=== PATIENT | female | born 1995 | race Caucasian/White ===

== ENCOUNTER 2017-07-25 14:19 | Emergency (ER) | payer SELFPAY ==
[~2017-07-25] VITALS: Ht 166.4 cm; Wt 48.2 kg
[~2017-07-25 14:19] MED LIST: FLAG500T PO
[2017-07-25 14:26] VITALS: BP 114/66; PULSE 81; RESP 16; TEMP 97.5; O2SAT 100
[2017-07-25] MEDS ORDERED: SODIUM CHLOR 0.9% 1000 ML INJ 1,000 ML IV ONE (14:42)
[2017-07-25] MEDS ORDERED: SODIUM CHLORIDE 0.9% FLUSH 10 ML FLUSH IVF PRN (14:45)
[2017-07-25] MEDS ORDERED: ONDANSETRON HCL 4 MG/2 ML VIAL IVP ONE (14:45)
--- NOTE | 2017-07-25 14:47 | PD ---
HPI Chief Complaint: GI Complaint Time Seen by Provider: 14:35 Travel History International Travel<30 days: No Contact w/Intl Traveler<30days: No Traveled to known affect area: No History of Present Illness HPI The patient is a 22-year-old female who presents emergency department for nausea, vomiting, lower abdominal cramping. The patient is a whose last menstrual cycle was May 09, 2017, she thinks she may be . She denies any dysuria, frequency, urgency, vaginal discharge, or vaginal bleeding. The abdominal pain is located in the lower aspect, is described as cramping, and assisted with nausea and vomiting. She denies any diarrhea. She denies any fever, chills, or sweats. She recently returned home from [place] to the local area. She is sexually active. Symptoms are mild to moderate. PFSH Past Medical History Depression: Yes Diabetes: Yes (HYPOGLYCEMIA) Seizures: Yes ?: Unknown LMP: 05/09/17 : 1 Past Surgical History Appendectomy: Yes Social History Alcohol Use: No Tobacco Use: No Substance Use: No Allergies-Medications (Allergen,Severity, Reaction): Coded Allergies: No Known Allergies (Unverified Adverse Reaction, Unknown, 07/25/17) Reported Meds & Prescriptions Reported Meds & Active Scripts Active Reported Lamictal (Lamotrigine) 100 Mg Tab 100 Mg PO BID Review of Systems Except as stated in HPI: all other systems reviewed are Neg General / Constitutional: No: Fever Cardiovascular: No: Chest Pain or Discomfort Respiratory: No: Shortness of Breath Gastrointestinal: Positive: Nausea, Vomiting, No: Diarrhea, Abdominal Pain Genitourinary: Positive: Pelvic Pain, No: Dysuria, Discharge, Vaginal Bleeding Skin: No Rash Physical Exam Narrative GENERAL: Awake, alert, nontoxic-appearing 22-year-old female who appears her stated age and is in no acute respiratory distress. SKIN: Focused skin assessment warm/dry. HEAD: Atraumatic. Normocephalic. EYES: Pupils equal and round. Patient is wearing glasses. ENT: No nasal bleeding or discharge. Mucous membranes pink and moist. NECK: Trachea midline. No JVD. CARDIOVASCULAR: Regular rate and rhythm. No murmur appreciated. RESPIRATORY: No accessory muscle use. Clear to auscultation. Breath sounds equal bilaterally. GASTROINTESTINAL: Abdomen soft, non-tender, nondistended. No rebound tenderness , guarding, rigidity. Back: No CVA tenderness. MUSCULOSKELETAL: No obvious deformities. No clubbing. No cyanosis. No edema. NEUROLOGICAL: Awake and alert. No obvious cranial nerve deficits. Motor grossly within normal limits. Normal speech. PSYCHIATRIC: Appropriate mood and affect; insight and judgment normal. Data Data Last Documented VS Vital Signs Date Time Temp Pulse Resp B/P (MAP) Pulse Ox O2 Delivery O2 Flow Rate FiO2 07/25/17 16:21 78 16 104/58 (73) 98 Room Air 07/25/17 14:26 97.5 Orders Orders Complete Blood Count With Diff (07/25/17 14:42) Comprehensive Metabolic Panel (07/25/17 14:42) Urinalysis - C+S If Indicated (07/25/17 14:42) Sodium Chloride 0.9% Flush (Ns Flush) (07/25/17 14:45) Sodium Chlor 0.9% 1000 Ml Inj (Ns 1000 M (07/25/17 14:42) Ondansetron Inj (Zofran Inj) (07/25/17 14:45) Ed Urine Pregnancytest Poc (07/25/17 14:42) Lipase (07/25/17 14:42) Beta Hcg (Quant/Titer) (07/25/17 14:50) Us Pelvis (Ques Preg/Ectopic) (07/25/17 ) Potassium Chloride (Kcl) (07/25/17 16:00) Labs Laboratory Tests Test 07/25/17 14:40 07/25/17 14:50 Urine Collection Type VOIDED Urine Color YELLOW Urine Turbidity CLOUDY Urine pH 8.5 Urine Specific [place] 1.018 Urine Protein NEG mg/dL Urine Glucose (UA) NEG mg/dL Urine Ketones NEG mg/dL Urine Occult Blood NEG Urine Nitrite NEG Urine Bilirubin NEG Urine Leukocyte Esterase SMALL Urine WBC 0-2 /hpf Urine Squamous Epithelial Cells 0-5 /hpf Urine Amorphous Sediment MOD Microscopic Urinalysis Comment CULT NOT INDICATED White Blood Count 6.9 TH/MM3 Red Blood Count 4.54 MIL/MM3 Hemoglobin 13.5 GM/DL Hematocrit 39.6 % Mean Corpuscular Volume 87.2 FL Mean Corpuscular Hemoglobin 29.7 PG Mean Corpuscular Hemoglobin Concent 34.1 % Red Cell Distribution Width 11.6 % Platelet Count 177 TH/MM3 Mean Platelet Volume 10.4 FL Neutrophils (%) (Auto) 58.7 % Lymphocytes (%) (Auto) 31.4 % Monocytes (%) (Auto) 8.4 % Eosinophils (%) (Auto) 0.6 % Basophils (%) (Auto) 0.9 % Neutrophils # (Auto) 4.0 TH/MM3 Lymphocytes # (Auto) 2.2 TH/MM3 Monocytes # (Auto) 0.6 TH/MM3 Eosinophils # (Auto) 0.0 TH/MM3 Basophils # (Auto) 0.1 TH/MM3 CBC Comment DIFF FINAL Differential Comment Blood Urea Nitrogen 5 MG/DL Creatinine 0.61 MG/DL Random Glucose 79 MG/DL Total Protein 7.8 GM/DL Albumin 4.2 GM/DL Calcium Level 9.4 MG/DL Alkaline Phosphatase 75 U/L Aspartate Amino Transf (AST/SGOT) 15 U/L Alanine Aminotransferase (ALT/SGPT) 16 U/L Total Bilirubin 0.3 MG/DL Sodium Level 136 MEQ/L Potassium Level 3.2 MEQ/L Chloride Level 104 MEQ/L Carbon Dioxide Level 23.6 MEQ/L Anion Gap 8 MEQ/L Estimat Glomerular Filtration Rate 125 ML/MIN Lipase 155 U/L Human Chorionic Gonadotropin, Quant [id number] MIU/ML MDM Medical Decision Making Medical Screen Exam Complete: Yes Emergency Medical Condition: Yes Medical Record Reviewed: Yes Interpretation(s) Laboratory Tests Test 07/25/17 14:40 07/25/17 14:50 Urine Collection Type VOIDED Urine Color YELLOW Urine Turbidity CLOUDY Urine pH 8.5 Urine Specific [place] 1.018 Urine Protein NEG mg/dL Urine Glucose (UA) NEG mg/dL Urine Ketones NEG mg/dL Urine Occult Blood NEG Urine Nitrite NEG Urine Bilirubin NEG Urine Leukocyte Esterase SMALL Urine WBC 0-2 /hpf Urine Squamous Epithelial Cells 0-5 /hpf Urine Amorphous Sediment MOD Microscopic Urinalysis Comment CULT NOT INDICATED White Blood Count 6.9 TH/MM3 Red Blood Count 4.54 MIL/MM3 Hemoglobin 13.5 GM/DL Hematocrit 39.6 % Mean Corpuscular Volume 87.2 FL Mean Corpuscular Hemoglobin 29.7 PG Mean Corpuscular Hemoglobin Concent 34.1 % Red Cell Distribution Width 11.6 % Platelet Count 177 TH/MM3 Mean Platelet Volume 10.4 FL Neutrophils (%) (Auto) 58.7 % Lymphocytes (%) (Auto) 31.4 % Monocytes (%) (Auto) 8.4 % Eosinophils (%) (Auto) 0.6 % Basophils (%) (Auto) 0.9 % Neutrophils # (Auto) 4.0 TH/MM3 Lymphocytes # (Auto) 2.2 TH/MM3 Monocytes # (Auto) 0.6 TH/MM3 Eosinophils # (Auto) 0.0 TH/MM3 Basophils # (Auto) 0.1 TH/MM3 CBC Comment DIFF FINAL Differential Comment Blood Urea Nitrogen 5 MG/DL Creatinine 0.61 MG/DL Random Glucose 79 MG/DL Total Protein 7.8 GM/DL Albumin 4.2 GM/DL Calcium Level 9.4 MG/DL Alkaline Phosphatase 75 U/L Aspartate Amino Transf (AST/SGOT) 15 U/L Alanine Aminotransferase (ALT/SGPT) 16 U/L Total Bilirubin 0.3 MG/DL Sodium Level 136 MEQ/L Potassium Level 3.2 MEQ/L Chloride Level 104 MEQ/L Carbon Dioxide Level 23.6 MEQ/L Anion Gap 8 MEQ/L Estimat Glomerular Filtration Rate 125 ML/MIN Lipase 155 U/L Human Chorionic Gonadotropin, Quant [id number] MIU/ML Ultrasound reveals viable intrauterine is present with heart rate 165 bpm. The adnexa is unremarkable. [place]-rump length is 3.1 which equals 10 weeks 0 days. Differential Diagnosis Differential diagnosis includes , threatened AB, ectopic , UTI , cervicitis, PID, vaginitis, viral syndrome, gastritis. Narrative Course IV was established, labs are drawn and sent, and the patient was placed on cardiac telemetry monitoring and continuous pulse oximetry monitoring. Bedside UA test was positive, therefore, quantitative beta hCG was sent to lab. Ultrasound was ordered to evaluate for ectopic versus IUP. The patient was administered 1 L of IV fluids and Zofran 4 mg intravenously. I reviewed the patient's EMR, patient had a blood bank performed on September 10, 2014, she is O+. Therefore, no indication for RhoGAM. Beta hCG was greater than 133,000. Formal ultrasound reveals IUP with positive heart tones. The patient is advised to take a vitamin daily and a follow-up with an fire control assistant. Diagnosis Primary Impression: Qualified Codes: Z3A.10 - 10 weeks gestation of Additional Impression: Threatened Referrals: [facility] call for appointment Patient Instructions: General Instructions Additional Instructions: Take a vitamin daily. Please provide a patient a copy of her labs and ultrasound results at discharge. Follow-up with her fire control assistant. Disposition: 01 DISCHARGE HOME Condition: Stable Genaro Evans MD Jul 25, 2017 14:47
[2017-07-25] MEDS ORDERED: LAMO100 PO (15:07)
[2017-07-25 15:15] LABS: BASOPHIL # 0.1 TH/MM3 (0-0.2); BASOPHIL % 0.9 % (0.0-2.0); CHLORIDE 104 MEQ/L (98-107); EOSINOPHIL % 0.6 % (0.0-4.0); HEMATOCRIT 39.6 % (35.0-46.0); HEMOGLOBIN 13.5 GM/DL (11.6-15.3); LYMPH % 31.4 % (9.0-44.0); LYMPHOCYTE # 2.2 TH/MM3 (1.0-4.8); MEAN CELL VOLUME 87.2 FL (80.0-100.0); MEAN CORPUSCULAR HEMOGLOBIN 29.7 PG (27.0-34.0); MEAN CORPUSCULAR HGB CONC 34.1 % (32.0-36.0); MEAN PLATELET VOLUME 10.4 FL (7.0-11.0); MONO % 8.4 % (0.0-8.0); MONOCYTE # 0.6 TH/MM3 (0-0.9); NEUT % 58.7 % (16.0-70.0); PLATELET COUNT 177 TH/MM3 (150-450); RED BLOOD COUNT 4.54 MIL/MM3 (4.00-5.30); RED CELL DISTRIBUTION WIDTH 11.6 % (11.6-17.2); SODIUM (NA) 136 MEQ/L (136-145); WHITE BLOOD COUNT 6.9 TH/MM3 (4.0-11.0)
[2017-07-25 15:17] LABS: CALCIUM 9.4 MG/DL (8.5-10.1)
[2017-07-25 15:18] LABS: ALBUMIN 4.2 GM/DL (3.4-5.0); BICARBONATE 23.6 MEQ/L (21.0-32.0); BLOOD UREA NITROGEN 5 MG/DL (7-18); GLUCOSE,RANDOM 79 MG/DL (74-106)
[2017-07-25 15:21] LABS: ALT (GPT) 16 U/L (9-42); AST (GOT) 15 U/L (16-38); CREATININE 0.61 MG/DL (0.50-1.00); GLOMERULAR FILTRATION RATE 125 ML/MIN (>89)
[2017-07-25 15:22] LABS: TOTAL BILIRUBIN ADULT 0.3 MG/DL (0.2-1.0); TOTAL PROTEIN 7.8 GM/DL (6.4-8.2)
[2017-07-25 15:23] LABS: BILIRUBIN, URINE NEG (NEG); BLOOD, URINE NEG (NEG); GLUCOSE,URINE NEG (NEG); KETONE, URINE NEG (NEG); NITRITE,URINE NEG (NEG); PH, URINE 8.5 (5.0-8.5); URINE LEUKOCYTE ESTERASE SMALL (NEG)
[2017-07-25 15:24] LABS: ALKALINE PHOSPHATASE 75 U/L (45-117)
[2017-07-25 15:41] LABS: URINE COLOR YELLOW (YELLW/STRAW)
[2017-07-25 15:42] LABS: AMORPHOUS SEDIMENT, URINE MOD; SQUAMOUS EPITHELIAL CELL URINE 0-5 /hpf (0-5); WBC, URINE 0-2 /hpf (0-5)
[2017-07-25] MEDS ORDERED: POTASSIUM CHLORIDE 20 MEQ CONTROLLED RELEASE TAB PO ONE (16:00)
[2017-07-25 16:21] VITALS: BP 104/58; PULSE 78; RESP 16; O2SAT 98
--- NOTE | 2017-07-25 16:37 | RADRPT ---
EXAM DATE/TIME: 07/25/2017 15:02 [place] COMPARISON: No previous studies available for comparison. INDICATIONS : Pelvic pain. LAB(S): Beta-hC MEDICAL HISTORY : Seizures. Hypoglycemia. Depression. SURGICAL HISTORY : Appendectomy. ENCOUNTER: Initial ACUITY: 4-6 days PAIN SCORE: 3/10 LOCATION: Bilateral pelvis MEASUREMENTS: UTERUS: 8.1 x 8.0 x 5.2 cm ENDOMETRIAL STRIPE: 19 mm RIGHT OVARY: 3.2 x 2.0 x 1.8 cm LEFT OVARY: 2.6 x 1.7 x 1.5 cm FREE FLUID: No CROWN RUMP LENGTH: 3.1 = 10 WKS 0 DAYS FHR: 165 BPM FINDINGS: Viable into is present with heart 165 beats per minute. The adnexa is unremarkable. CONCLUSION: Viable IUP. KSiddharth Ortega MD on July 25, 2017 at 16:34 Board Certified Radiologist. This report was verified electronically.
[2017-07-25 17:18] VITALS: BP 104/55
== END 2017-07-25 17:20 | disposition home or self-care (01) ==
LOC: PHED 14:19
DX: O20.0 Threatened abortion (principal); O24.911 Unspecified diabetes mellitus in pregnancy, first trimester; R56.9 Unspecified convulsions; Z3A.10 10 weeks gestation of pregnancy
CPT/HCPCS: 76700; 80053; 81001; 83690; 84702; 84703; 85025; 96361; 96374; 99284; J2405; J7030

== ENCOUNTER 2017-08-08 12:23 | Emergency (ER) | payer OTHER ==
[~2017-08-08] VITALS: Ht 157.5 cm; Wt 48.0 kg
[~2017-08-08 12:23] MED LIST changes: -FLAG500T PO; +LAMO100 PO
[2017-08-08 12:30] VITALS: BP 110/63; PULSE 75; RESP 16; TEMP 97.7; O2SAT 99
[2017-08-08 12:41] VITALS: RESP 16; O2SAT 98
--- NOTE | 2017-08-08 12:41 | PD ---
HPI Chief Complaint: Seizure Time Seen by Provider: 12:29 Travel History International Travel<30 days: No Contact w/Intl Traveler<30days: No Traveled to known affect area: No History of Present Illness HPI 22 year old , 13 week gravid female with a history of seizures presents emergency department status post seizure that occurred just prior to arrival. States that she had a seizure at 1147 that lasted 3-1/2 minutes and she was postictal for approximately 5 minutes. Her boyfriend says that her seizures are characterized by going limp and unconscious with occasional drinks and then regaining consciousness. Patient denies urinary incontinence or tongue biting. States her last seizure was in June but she did not come to the emergency department as she fully regained consciousness prior to EMS arriving to her house. Patient does not know why that she had a seizure however suspect that she has "low blood sugar". Patient denies any other medical issues. Patient says that she takes Lamictal and is compliant with this medication. Patient has a first appointment with her safety engineer August 18. She has had an ultrasound to confirm IUP. Patient does not currently see a neurologist however she saw Dr. Nieves in [place] prior to coming here 2-1/2 weeks ago. [facility] Past Medical History Depression: Yes Diabetes: Yes (HYPOGLYCEMIA) Seizures: Yes ?: : 1 Para: 1 Past Surgical History Appendectomy: Yes Social History Alcohol Use: No Tobacco Use: No Substance Use: No Allergies-Medications (Allergen,Severity, Reaction): Coded Allergies: No Known Allergies (Verified Allergy, Unknown, 08/08/17) Reported Meds & Prescriptions Reported Meds & Active Scripts Active Reported Lamictal (Lamotrigine) 100 Mg Tab 100 Mg PO BID Review of Systems Except as stated in HPI: all other systems reviewed are Neg Physical Exam Narrative GENERAL: Well-developed well-nourished in no apparent distress, resting comfortably in bed SKIN: Focused skin assessment warm/dry. HEAD: Atraumatic. Normocephalic. EYES: Pupils equal and round. No scleral icterus. No injection or drainage. ENT: No nasal bleeding or discharge. Mucous membranes pink and moist. NECK: Trachea midline. No JVD. CARDIOVASCULAR: Regular rate and rhythm. No murmur appreciated. RESPIRATORY: No accessory muscle use. Clear to auscultation. Breath sounds equal bilaterally. GASTROINTESTINAL: Abdomen soft, non-tender, nondistended. Hepatic and splenic margins not palpable. MUSCULOSKELETAL: No obvious deformities. No clubbing. No cyanosis. No edema. NEUROLOGICAL: Awake and alert. No obvious cranial nerve deficits. Motor grossly within normal limits. Normal speech. PSYCHIATRIC: Appropriate mood and affect; insight and judgment normal. Data Data Last Documented VS Vital Signs Date Time Temp Pulse Resp B/P (MAP) Pulse Ox O2 Delivery O2 Flow Rate FiO2 08/08/17 15:00 97.7 72 16 108/68 (81) 99 08/08/17 13:46 Room Air Orders Orders Complete Blood Count With Diff (08/08/17 12:37) Basic Metabolic Panel (Bmp) (08/08/17 12:37) Drug Screen, Random Urine (08/08/17 12:37) Blood Glucose (08/08/17 12:37) Ecg Monitoring (08/08/17 12:37) Iv Access Insert/Monitor (08/08/17 12:37) Oximetry (08/08/17 12:37) Sodium Chloride 0.9% Flush (Ns Flush) (08/08/17 12:45) Beta Hcg (Quant/Titer) (08/08/17 12:37) Ed Discharge Order (08/08/17 14:50) Labs Laboratory Tests Test 08/08/17 12:50 08/08/17 13:26 White Blood Count 6.8 TH/MM3 Red Blood Count 4.04 MIL/MM3 Hemoglobin 12.5 GM/DL Hematocrit 35.6 % Mean Corpuscular Volume 88.2 FL Mean Corpuscular Hemoglobin 30.9 PG Mean Corpuscular Hemoglobin Concent 35.0 % Red Cell Distribution Width 12.1 % Platelet Count 157 TH/MM3 Mean Platelet Volume 10.4 FL Neutrophils (%) (Auto) 69.5 % Lymphocytes (%) (Auto) 22.0 % Monocytes (%) (Auto) 7.3 % Eosinophils (%) (Auto) 0.6 % Basophils (%) (Auto) 0.6 % Neutrophils # (Auto) 4.7 TH/MM3 Lymphocytes # (Auto) 1.5 TH/MM3 Monocytes # (Auto) 0.5 TH/MM3 Eosinophils # (Auto) 0.0 TH/MM3 Basophils # (Auto) 0.0 TH/MM3 CBC Comment DIFF FINAL Differential Comment Blood Urea Nitrogen 8 MG/DL Creatinine 0.57 MG/DL Random Glucose 87 MG/DL Calcium Level 9.2 MG/DL Sodium Level 138 MEQ/L Potassium Level 3.5 MEQ/L Chloride Level 106 MEQ/L Carbon Dioxide Level 22.8 MEQ/L Anion Gap 9 MEQ/L Estimat Glomerular Filtration Rate 135 ML/MIN Human Chorionic Gonadotropin, Quant [id number] MIU/ML Urine Opiates Screen NEG Urine Barbiturates Screen NEG Urine Amphetamines Screen NEG Urine Benzodiazepines Screen NEG Urine Cocaine Screen NEG Urine Cannabinoids Screen NEG MDM Medical Decision Making Medical Screen Exam Complete: Yes Emergency Medical Condition: Yes Differential Diagnosis Seizure, pseudoseizure, malingering, status Narrative Course 22 year old , 13 week gravid female with a history of seizures presents emergency department status post seizure that occurred just prior to arrival. States that she had a seizure at 1147 that lasted 3-1/2 minutes and she was postictal for approximately 5 minutes. Her boyfriend says that her seizures are characterized by going limp and unconscious with occasional drinks and then regaining consciousness. Patient denies urinary incontinence or tongue biting. States her last seizure was in June but she did not come to the emergency department as she fully regained consciousness prior to EMS arriving to her house. Patient does not know why that she had a seizure however suspect that she has "low blood sugar". Patient denies any other medical issues. Patient says that she takes Lamictal and is compliant with this medication. Patient has a first appointment with her safety engineer August 18. She has had an ultrasound to confirm IUP. Patient does not currently see a neurologist however she saw Dr. Nivees in [place] prior to coming here 2-1/2 weeks ago. Vital signs stable. POC Blood glucose 97. POC Pelvic US demonstrates an IUP with an active movement. Hypoechoic fluid surrounding. Uniform appearance of the uterus. Unfortunately, Lamictal would require an excessive period of time prior to resulting. Patient strongly advised to follow-up with a neurologist. CBC & BMP Diagram 08/08/17 12:50 Calcium Level 9.2 I spoke with the OB hospitalist, Dr. Beavers and he recommended a follow-up with an outpatient OB. I explained to the patient the importance of following up with safety engineer and neurologist. I suspect that the patient's Lamictal dose is subtherapeutic vs drug changes based off of status for her however she is to follow up with an outpatient. Patient remained stable and seizure- free in the emergency department today. Her and her family understand the importance of follow-up and states she will comply. Physician Communication Physician Communication I spoke with Dr. Beavers who recommended follow-up as an outpatient with an safety engineer and neurologist as patient is 13 weeks and base of the information I explained to him, he did not feel it was necessary for her to be admitted for observation. I thank Dr. Beavers for his time. Diagnosis Primary Impression: Seizure Referrals: Neurologist Botany Technician Additional Instructions: Follow-up with the neurologist as discussed. Take your medication as prescribed. It is imperative you follow-up with an safety engineer as well as scheduled. Disposition: 01 DISCHARGE HOME Condition: Stable Claire Nash Aug 08, 2017 12:41
[2017-08-08] MEDS ORDERED: SODIUM CHLORIDE 0.9% FLUSH 10 ML FLUSH IVF PRN (12:45)
[2017-08-08 13:40] LABS: AUTOMATED NEUTROPHIL # 4.7 TH/MM3 (1.8-7.7); BASOPHIL % 0.6 % (0.0-2.0); EOSINOPHIL % 0.6 % (0.0-4.0); HEMATOCRIT 35.6 % (35.0-46.0); HEMOGLOBIN 12.5 GM/DL (11.6-15.3); LYMPHOCYTE # 1.5 TH/MM3 (1.0-4.8); MEAN CELL VOLUME 88.2 FL (80.0-100.0); MEAN CORPUSCULAR HEMOGLOBIN 30.9 PG (27.0-34.0); MEAN PLATELET VOLUME 10.4 FL (7.0-11.0); MONO % 7.3 % (0.0-8.0); MONOCYTE # 0.5 TH/MM3 (0-0.9); NEUT % 69.5 % (16.0-70.0); PLATELET COUNT 157 TH/MM3 (150-450); RED BLOOD COUNT 4.04 MIL/MM3 (4.00-5.30); RED CELL DISTRIBUTION WIDTH 12.1 % (11.6-17.2); WHITE BLOOD COUNT 6.8 TH/MM3 (4.0-11.0)
[2017-08-08 13:46] VITALS: BP 109/67; PULSE 68; RESP 16; TEMP 97.7; O2SAT 99
[2017-08-08 14:05] LABS: BICARBONATE 22.8 MEQ/L (21.0-32.0); CALCIUM 9.2 MG/DL (8.5-10.1); CREATININE 0.57 MG/DL (0.50-1.00)
[2017-08-08 15:00] VITALS: BP 108/68; TEMP 97.7
== END 2017-08-08 15:00 | disposition home or self-care (01) ==
LOC: NEPC 12:23
DX: O99.351 Diseases of the nervous system complicating pregnancy, first trimester (principal); G40.909 Epilepsy, unspecified, not intractable, without status epilepticus; O24.911 Unspecified diabetes mellitus in pregnancy, first trimester; Z3A.13 13 weeks gestation of pregnancy; Z79.899 Other long term (current) drug therapy
CPT/HCPCS: 80048; 80307; 84702; 85025; 99283

== ENCOUNTER 2017-08-12 11:39 | Emergency (ER) | payer OTHER ==
[2017-08-12] VITALS (8 sets, daily range): BP systolic 94–115; BP diastolic 51–60; PULSE 70–90; RESP 13–22; TEMP 98.5; O2SAT 9–98
[~2017-08-12] VITALS: Ht 157.5 cm; Wt 48.0 kg
[2017-08-12 13:21] LABS: AUTOMATED NEUTROPHIL # 5.3 TH/MM3 (1.8-7.7); BASOPHIL % 0.5 % (0.0-2.0); EOSINOPHIL % 0.6 % (0.0-4.0); HEMATOCRIT 34.5 % (35.0-46.0); HEMOGLOBIN 12.2 GM/DL (11.6-15.3); LYMPH % 19.5 % (9.0-44.0); LYMPHOCYTE # 1.4 TH/MM3 (1.0-4.8); MEAN CELL VOLUME 87.1 FL (80.0-100.0); MEAN CORPUSCULAR HEMOGLOBIN 30.7 PG (27.0-34.0); MEAN CORPUSCULAR HGB CONC 35.3 % (32.0-36.0); MEAN PLATELET VOLUME 10.4 FL (7.0-11.0); MONO % 6.5 % (0.0-8.0); MONOCYTE # 0.5 TH/MM3 (0-0.9); NEUT % 72.9 % (16.0-70.0); PLATELET COUNT 163 TH/MM3 (150-450); RED BLOOD COUNT 3.97 MIL/MM3 (4.00-5.30); RED CELL DISTRIBUTION WIDTH 12.2 % (11.6-17.2); WHITE BLOOD COUNT 7.3 TH/MM3 (4.0-11.0)
--- NOTE | 2017-08-12 13:27 | PD ---
HPI Chief Complaint: Seizure Time Seen by Provider: 12:18 Travel History International Travel<30 days: No Contact w/Intl Traveler<30days: No Traveled to known affect area: No History of Present Illness HPI The patient was seen and examined in the presence of the nurse. Patient is 13 weeks . She has epilepsy. She takes Lamictal and reports compliance. He recently moved from [place] and was here 4 days ago with reported seizure. She comes in today reporting a second seizure. She was feeling lightheaded and dizzy and sat down and according to her boyfriend passed out for 5 minutes. There is no incontinence or tongue injury. He did not see active seizure activity. It is unclear if this represents a true seizure or not but certainly could be. She is not postictal on arrival. She is asymptomatic. Symptom severity was moderate. PFSH Past Medical History Depression: Yes Diabetes: Yes (HYPOGLYCEMIA) Patient Takes Glucophage: No Diminished Hearing: No Neurologic: Yes Seizures: Yes ?: LMP: 05/09/17 : 2 Para: 1 Past Surgical History Appendectomy: Yes Social History Alcohol Use: No Tobacco Use: No Substance Use: No Allergies-Medications (Allergen,Severity, Reaction): Coded Allergies: No Known Allergies (Verified Allergy, Unknown, 08/12/17) Reported Meds & Prescriptions Reported Meds & Active Scripts Active Reported Lamictal (Lamotrigine) 100 Mg Tab 100 Mg PO BID Review of Systems General / Constitutional: No: Fever Eyes: No: Visual changes HENT: Positive: Lightheadedness, No: Headaches Cardiovascular: No: Chest Pain or Discomfort Respiratory: No: Shortness of Breath Gastrointestinal: No: Abdominal Pain Genitourinary: No: Dysuria Musculoskeletal: No: Pain Skin: No Rash Neurologic: Positive: Dizziness, Seizures, No: Weakness Psychiatric: No: Depression Endocrine: No: Polydipsia Hematologic/Lymphatic: No: Easy Bruising Physical Exam Narrative GENERAL: Well-nourished, well-developed patient in no apparent distress. SKIN: Focused skin assessment reveals no rash and nodules. Skin is Warm and dry. HEAD: Atraumatic. Normocephalic. EYES: Pupils equal and round. No scleral icterus. No injection or drainage. ENT: No nasal bleeding or discharge. Mucous membranes pink and moist. NECK: Trachea midline. No JVD. CARDIOVASCULAR: Regular rate and rhythm. No murmur appreciated. RESPIRATORY: No accessory muscle use. Clear to auscultation. Breath sounds equal bilaterally. GASTROINTESTINAL: Abdomen soft, non-tender, nondistended. Hepatic and splenic margins not palpable. MUSCULOSKELETAL: No obvious deformities. No clubbing. No cyanosis. No edema. NEUROLOGICAL: Awake and alert. No obvious cranial nerve deficits. Motor grossly within normal limits. Normal speech. PSYCHIATRIC: Appropriate mood and affect; insight and judgment normal. Data Data Last Documented VS Vital Signs Date Time Temp Pulse Resp B/P (MAP) Pulse Ox O2 Delivery O2 Flow Rate FiO2 08/12/17 13:00 86 13 97/58 (71) 98 Room Air 08/12/17 12:07 98.5 Orders Orders Iv Access Insert/Monitor (08/12/17 12:50) Complete Blood Count With Diff (08/12/17 12:50) Basic Metabolic Panel (Bmp) (08/12/17 12:50) Labs Laboratory Tests Test 08/12/17 12:15 White Blood Count 7.3 TH/MM3 Red Blood Count 3.97 MIL/MM3 Hemoglobin 12.2 GM/DL Hematocrit 34.5 % Mean Corpuscular Volume 87.1 FL Mean Corpuscular Hemoglobin 30.7 PG Mean Corpuscular Hemoglobin Concent 35.3 % Red Cell Distribution Width 12.2 % Platelet Count 163 TH/MM3 Mean Platelet Volume 10.4 FL Neutrophils (%) (Auto) 72.9 % Lymphocytes (%) (Auto) 19.5 % Monocytes (%) (Auto) 6.5 % Eosinophils (%) (Auto) 0.6 % Basophils (%) (Auto) 0.5 % Neutrophils # (Auto) 5.3 TH/MM3 Lymphocytes # (Auto) 1.4 TH/MM3 Monocytes # (Auto) 0.5 TH/MM3 Eosinophils # (Auto) 0.0 TH/MM3 Basophils # (Auto) 0.0 TH/MM3 CBC Comment DIFF FINAL Differential Comment Blood Urea Nitrogen 5 MG/DL Creatinine 0.49 MG/DL Random Glucose 73 MG/DL Calcium Level 8.3 MG/DL Sodium Level 139 MEQ/L Potassium Level 3.4 MEQ/L Chloride Level 110 MEQ/L Carbon Dioxide Level 19.7 MEQ/L Anion Gap 9 MEQ/L Estimat Glomerular Filtration Rate 161 ML/MIN [facility] Medical Decision Making Medical Screen Exam Complete: Yes Emergency Medical Condition: Yes Medical Record Reviewed: Yes Differential Diagnosis Breakthrough seizure, anxiety, pseudoseizure Narrative Course I have reviewed the patient's electronic medical record. Reviewed her visit from 4 days ago CBC is normal Metabolic profile is normal Patient's exam is normal and she is not postictal, is neurologically normal Placed a call to neurologist search engine optimization manager to discuss I discussed with Dr. Scott She recommended increasing Lamictal to 150 in the evening dose for 2 weeks then increasing to 150 twice daily Reviewed this with the patient who will start that while she continues to look for neurologist I observed her for several hours and she is asymptomatic without any recurrence Diagnosis Primary Impression: Breakthrough seizure Additional Impression: Qualified Codes: Z3A.13 - 13 weeks gestation of Additional Instructions: Increase Lamictal to 150 mg in the morning and 150 mg in the evening. In 2 weeks time increased to 150 mg twice a day Continue to search for neurologist Med/Other Pt SpecificInfo: Other Disposition: 01 DISCHARGE HOME Condition: Stable Darrick Garza MD Aug 12, 2017 13:27
[2017-08-12 13:52] LABS: BICARBONATE 19.7 MEQ/L (21.0-32.0); CALCIUM 8.3 MG/DL (8.5-10.1); CREATININE 0.49 MG/DL (0.50-1.00)
== END 2017-08-12 16:35 | disposition home or self-care (01) ==
LOC: NEPC 11:39
DX: O99.351 Diseases of the nervous system complicating pregnancy, first trimester (principal); G40.901 Epilepsy, unspecified, not intractable, with status epilepticus; Z3A.13 13 weeks gestation of pregnancy
CPT/HCPCS: 80048; 85025; 99283